=== PATIENT | male | born 1990 | race Hispanic/Latino ===

== ENCOUNTER 2019-12-08 16:29 | Emergency (ER) | payer OTHER ==
[2019-12-08] MEDS ORDERED: LIDOCAINE 1% W/EPI 1:100,000 MDV 20 ML VIAL ONE (17:02)
[2019-12-08] MEDS ORDERED: TETANUS & DIPHTHERIA TOX,ADULT 0.5 ML VIAL ONE (17:06)
--- NOTE | 2019-12-08 17:28 | EDPHYS ---
Physician Documentation [facility] Name: Sharad Blair Age: 29 yrs Sex: Male : 1990 Arrival Date: 12/08/2019 Time: 16:29 Bed 24 Private MD: ED Physician Patel Hines HPI: 12/07 16:55 This 29 yrs old Male presents to ER via Ambulatory with complaints of right cp wrist. 16:55 The patient has a laceration and there are no complicating factors. The injury was cp accidental. 16:55 The laceration(s) is(are) located on the right wrist. Onset: The symptoms/episode cp began/occurred 1 hour(s) ago. Associated signs and symptoms: Pertinent negatives: heavy bleeding, numbness distal to injury, suspected foreign body. Historical: - Allergies: 16:39 No Known Allergies; aa5 - PMHx: 16:39 None; aa5 - PSHx: 16:39 Tonsillectomy; Adenoids; aa5 - Immunization history:: Last tetanus immunization: unknown. - Social history:: Smoking status: Patient denies any tobacco usage or history of. ROS: 17:00 Skin: Positive for laceration(s), of the right wrist. cp 17:00 Neuro: Negative for numbness, tingling, weakness. cp 17:00 All other systems are negative. Exam: 17:05 Constitutional: The patient appears in no acute distress, alert, awake, well developed, cp well nourished. 17:05 Musculoskeletal/extremity: ROM: full active range of motion, in the right wrist, cp Perfusion: the extremity is normally perfused throughout, Sensation intact. Tendon exam: specific tendon testing normal through active and passive range of motion 17:05 Skin: injury, laceration(s), of the right wrist, that can be described as clean, linear, without bleeding. Vital Signs: 16:37 BP 119 / 92; Pulse 86; Resp 18 S; Temp 98.5(O); Pulse Ox 98% on R/A; Weight 72.57 kg aa5 (R); Height 5 ft. 4 in. (162.56 cm) (R); Pain 1/10; 17:28 BP 113 / 80; Pulse 83; Resp 16 S; Pulse Ox 99% on R/A; ca1 16:37 Body Mass Index 27.46 (72.57 kg, 162.56 cm) aa5 Laceration: 17:25 Wound Repair of 2.5cm ( 1.0in ) subcutaneous laceration to right wrist. Linear shaped.. cp Distal neuro/vascular/tendon intact. Anesthesia: Wound infiltrated with 2 mls of 1% lidocaine w/ Epi. Wound prep: Moderate cleansing by me, Wound irrigation by me. Skin closed with 3 4-0 Prolene using simple sutures and sterile technique. Dressed with Bacitracin, 4x4's. Patient tolerated well. MDM: 16:46 Patient medically screened. cp 17:26 Data reviewed: vital signs, nurses notes, and as a result, I will discharge patient. 17:26 Counseling: I had a detailed discussion with the patient and/or guardian regarding: the cp historical points, exam findings, and any diagnostic results supporting the discharge/admit diagnosis, to return to the emergency department if symptoms worsen or persist or if there are any questions or concerns that arise at home. Response to treatment: the patient's symptoms have markedly improved after treatment, and as a result, I will discharge patient. 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 Exp: ca1 09/16/2021. Lot #: [id number]. } Route: IM; Site: left deltoid; 17:15 Follow up: Response: No adverse reaction ca1 17:16 Drug: Lidocaine-Epinephrine -1%: (1:100,000) 10 ml {Note: By RUCHI Azar.} Volume: ca1 20 ml; Route: Infiltration; Disposition: 17:35 Chart complete. 12/08 01:29 Co-signature as Attending Physician, Patel Hines MD I agree with the assessment and kdr plan of care. Disposition: 12/08/19 17:27 Discharged to Home. Impression: Laceration without foreign body of right wrist. - Condition is Stable. - Discharge Instructions: Laceration Care, Adult. - Medication Reconciliation Form, Thank You Letter, Antibiotic Education, Prescription Opioid Use form. - Follow up: Private Physician; When: 7 - 10 days; Reason: Staple/Suture removal. - Problem is new. - Symptoms have improved. Signatures: Patel Hines MD MD kdr Aline Streeter RN RN aa5 Samson Morse PA PA cp Vera Batista RN RN ca1 Corrections: (The following items were deleted from the chart) 12/07 17:32 17:27 12/08/2019 17:27 Discharged to Home. Impression: Laceration without foreign body ca1 of right wrist. Condition is Stable. Forms are Medication Reconciliation Form, Thank You Letter, Antibiotic Education, Prescription Opioid Use. Follow up: Private Physician; When: 7 - 10 days; Reason: Staple/Suture removal. Problem is new. Symptoms have improved. cp 12/08 15:47 12/07 16:55 This 29 yrs old Male presents to ER via Ambulatory with complaints of cp Laceration To Head. cp
--- NOTE | 2019-12-08 17:28 | ER ---
Nurse's Notes [facility] Name: Sharad Blair Age: 29 yrs Sex: Male : 1990 Arrival Date: 12/08/2019 Time: 16:29 Bed 24 Private MD: Diagnosis: Laceration without foreign body of right wrist Presentation: 12/07 16:37 Chief complaint: Patient states: "I cut my wrist with a metal plate". laceration noted aa5 right wrist, no active bleeding noted. Coronavirus screen: Proceed with normal triage. Patient denies a cough. Patient denies shortness of breath or difficulty breathing. Patient denies measured and/or subjective temperature greater than 100.4F prior to today's visit. Patient denies travel on a cruise ship or to a country the [facility] currently lists as an affected area. Patient denies contact with known and/or suspected case of COVID-19. Ebola Screen: Patient negative for fever greater than or equal to 101.5 degrees Fahrenheit, and additional compatible Ebola Virus Disease symptoms. Complicating Factors: There are no complicating factors for this patient. Initial Sepsis Screen: Does the patient meet any 2 criteria? No. Patient's initial sepsis screen is negative. Does the patient have a suspected source of infection? No. Patient's initial sepsis screen is negative. Risk Assessment: Do you want to hurt yourself or someone else? Patient reports no desire to harm self or others. Onset of symptoms was December 08, 2019. 16:37 Method Of Arrival: Ambulatory aa5 16:37 Acuity: KILO 4 aa5 Triage Assessment: 17:29 General: Behavior is. Injury Description: Laceration. ca1 Historical: - Allergies: 16:39 No Known Allergies; aa5 - PMHx: 16:39 None; aa5 - PSHx: 16:39 Tonsillectomy; Adenoids; aa5 - Immunization history:: Last tetanus immunization: unknown. - Social history:: Smoking status: Patient denies any tobacco usage or history of. Screenin:57 Abuse screen: Denies threats or abuse. Denies injuries from another. Nutritional ca1 screening: No deficits noted. Tuberculosis screening: No symptoms or risk factors identified. Fall Risk None identified. Assessment: 16:57 General: Appears in no apparent distress. Pain: Complains of pain in right wrist Pain ca1 currently is 2 out of 10 on a pain scale. Neuro: Level of Consciousness is awake, alert, obeys commands, Oriented to person, place, time, situation, Appropriate for age. Derm: Skin is healthy with good turgor, Skin is pink, warm \\T\\ dry. Musculoskeletal: Circulation, motion, and sensation intact. Capillary refill < 3 seconds, Range of motion: intact in all extremities. Injury Description: Laceration sustained to right wrist is clean, 0.5 to 2.5 cm long, not bleeding, was sustained 30-60 minutes ago. is bleeding no active bleeding noted. 17:28 Reassessment: Patient appears in no apparent distress at this time. Patient is alert, ca1 oriented x 3, equal unlabored respirations, skin warm/dry/pink. Vital Signs: 16:37 BP 119 / 92; Pulse 86; Resp 18 S; Temp 98.5(O); Pulse Ox 98% on R/A; Weight 72.57 kg aa5 (R); Height 5 ft. 4 in. (162.56 cm) (R); Pain 1/10; 17:28 BP 113 / 80; Pulse 83; Resp 16 S; Pulse Ox 99% on R/A; ca1 16:37 Body Mass Index 27.46 (72.57 kg, 162.56 cm) aa5 ED Course: 16:29 Patient arrived in ED. ag5 16:39 Triage completed. aa5 16:39 Arm band placed on. aa5 16:43 Samson Morse PA is PHCP. cp 16:43 Patel Hines MD is Attending Physician. cp 16:44 Vera Batista, [place] is Primary Nurse. ca1 16:57 Patient has correct armband on for positive identification. Bed in low position. Call ca1 light in reach. Side rails up X 1. Pulse ox on. NIBP on. 16:58 Patient did not have IV access during this emergency room visit. ca1 17:24 Assist provider with laceration repair on right wrist that was 2.5 cm. or less using ca1 sutures. Set up tray. Performed by Samson HOPPER Dressed with 4X4s, Neosporin, Patient tolerated well. 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 Exp: ca1 09/16/2021. Lot #: [id number]. } Route: IM; Site: left deltoid; 17:15 Follow up: Response: No adverse reaction ca1 17:16 Drug: Lidocaine-Epinephrine -1%: (1:100,000) 10 ml {Note: By RUCHI Azar.} Volume: ca1 20 ml; Route: Infiltration; Outcome: 17:27 Discharge ordered by MD. shelton 17:32 Discharged to home ambulatory. ca1 17:32 Condition: stable 17:32 Discharge instructions given to patient, Instructed on discharge instructions, follow up and referral plans. wound care, Demonstrated understanding of instructions, follow-up care, wound care. 17:32 Patient left the ED. ca1 Signatures: Aline Streeter RN RN aa5 Samson Morse PA PA cp Acob, Cheryl RN RN ca1 Clarence Queen ag5
[2019-12-09 05:30] VITALS: TEMP 98.5
[2019-12-09 05:32] VITALS: BP 113/80; O2SAT 99
== END 2019-12-08 17:32 | disposition home or self-care (01) ==
LOC: ER 16:29
PROC: 0JQJ0ZZ Repair Right Hand Subcutaneous Tissue and Fascia, Open Approach (ICD-10-PCS; principal; 2019-12-08)
DX: S61.511A Laceration without foreign body of right wrist, initial encounter (principal); W26.8XXA Contact with other sharp object(s), not elsewhere classified, initial encounter; Y93.9 Activity, unspecified; Y92.9 Unspecified place or not applicable; Z23 Encounter for immunization
CPT/HCPCS: 90471; 90714; 99283